=== PATIENT | male | born 1940 | race Caucasian/White ===

== ENCOUNTER 2022-01-10 18:20 | Inpatient (IN) | payer OTHER, SELFPAY ==
[~2022-01-10] VITALS: Ht 182.9 cm; Wt 65.8 kg
[2022-01-10 18:28] VITALS: BP 190/92
[2022-01-10] MEDS ORDERED: NACL 0.9% 1,000 ML IV SCH (18:35)
[2022-01-10] MEDS ORDERED: cefTRIAXone 1,000 MG in DEXT 5% MINI-BAG PLUS 50 ML IV ONE (18:35)
[2022-01-10] MEDS ORDERED: ONDANSETRON 4 MG/2 ML VIAL IVP ONE (18:35)
--- NOTE | 2022-01-10 18:45 | NUR ---
81 Y/O MALE BIBA FROM [facility] C/O N/V/D X1DAY. PER EMT PT BLOOD SUGAR 143. PT HAS A GCS OF 12, NON-VERBAL, LEFT SIDE DEFICITS S/P CVA. DENIES FEVER/CHILLS. DENIES N/V. PMH: DEMENTIA NKA
--- NOTE | 2022-01-10 18:50 | NUR ---
18G IV ESTABLISHED IN L UPPER ARM AND BLOODWORK COLLECTED
--- NOTE | 2022-01-10 18:50 | NUR ---
# 16 FR Urinary catheter inserted utilizing sterile technique. Immediate return of 10 ml YELLOW urine noted. Urine sample collected and sent to lab. Pt tolerated procedure WELL.
--- NOTE | 2022-01-10 18:57 | NUR ---
BLOODWORK, URINE, AND COVID LANG COLLECTED AND WALKED TO LAB
[2022-01-10] MEDS ORDERED: cefTRIAXone 1,000 MG VIAL ONE (18:59)
--- NOTE | 2022-01-10 19:01 | NUR ---
XRAY AT PATIENT BEDSIDE
[2022-01-10] MEDS ORDERED: SENN8.8S21 PO (19:10)
[2022-01-10] MEDS ORDERED: ZINC100T8 PO (19:10)
[2022-01-10] MEDS ORDERED: ACET-8386 PO (19:10)
[2022-01-10] MEDS ORDERED: ELIMC TP (19:10)
[2022-01-10] MEDS ORDERED: [UNRECOGNIZED DRUG - CODE] PO (19:10)
[2022-01-10] MEDS ORDERED: ACET-10509 PO (19:10)
[2022-01-10] MEDS ORDERED: BISA-218 RC (19:10)
[2022-01-10] MEDS ORDERED: MULT-1328 PO (19:10)
[2022-01-10] MEDS ORDERED: ASCO500T95 PO (19:10)
[2022-01-10] MEDS ORDERED: FERR325E14 PO (19:10)
[2022-01-10] MEDS ORDERED: MAGN400S60 PO (19:10)
[2022-01-10] MEDS ORDERED: PANT40EC PO (19:10)
[2022-01-10] MEDS ORDERED: BISA-28 PO (19:10)
[2022-01-10] MEDS ORDERED: MEMA10TA PO (19:10)
[2022-01-10] MEDS ORDERED: DOCU-299 PO (19:10)
--- NOTE | 2022-01-10 19:13 | NUR ---
Pt report given to LU SEWELL. Transfer of care at this time.
[2022-01-10 19:19] LABS: BASOPHILS % (AUTO) 0.3 % (0.0-2.0); EOSINOPHILS # (AUTO) 0.7 K/uL (0-0.4); EOSINOPHILS % (AUTO) 6.4 % (0.0-4.0); HEMATOCRIT 42.1 % (36-52); HEMOGLOBIN 14.2 g/dL (12.0-18.0); LYMPHOCYTES # (AUTO) 0.9 K/uL (2.0-11.5); MEAN CORPUSCULAR HEMOGLOBIN 30 pg (27-31); MEAN CORPUSCULAR HGB CONC 34 g/dL (33-37); MEAN CORPUSCULAR VOLUME 89.4 fL (80-94); MONOCYTES % (AUTO) 0.1 % (1.7-9.3); NEUTROPHILS % (AUTO) 85.2 % (42.2-75.2); PLATELET COUNT (AUTO) 249 K/uL (140-450); RED BLOOD CELL COUNT(AUTO) 4.71 MIL/uL (4.20-6.10); RED CELL DISTRIBUTION WIDTH 14.2 % (11.6-13.7); WHITE BLOOD COUNT (AUTO) 11.7 K/uL (4.8-10.8)
--- NOTE | 2022-01-10 19:34 | NUR ---
Re-position patient, and check patient skin.
[2022-01-10 19:37] LABS: ALBUMIN 2.8 g/dL (3.4-5.0); ANION GAP 16.1 (8-16); ASPARTATE AMINOTRANSFERASE 14 U/L (15-37); CARBON DIOXIDE 25.6 mmol/L (21-32); CHLORIDE 109 mmol/L (98-107); CREATININE 1.1 mg/dL (0.6-1.3); GLUCOSE 117 mg/dL (74-106); POTASSIUM 3.7 mmol/L (3.5-5.1); SODIUM SERUM 147 mmol/L (136-145); TOTAL BILIRUBIN 0.5 mg/dL (0.0-1.0); UREA NITROGEN, BLOOD 20 mg/dL (7-18)
[2022-01-10] MEDS ORDERED: NACL 0.9% 1,000 ML IV ONE (19:45)
[2022-01-10 20:44] LABS: BILIRUBIN,URINE NEGATIVE (NEGATIVE); BLOOD, URINE NEGATIVE (NEGATIVE); LEUKOCYTE ESTERASE ,URINE TRACE (NEGATIVE); NITRITE, URINE NEGATIVE (NEGATIVE); PH,URINE 5.5 (5.0-9.0); UGLUCOSE NEGATIVE (NEGATIVE)
[2022-01-10] MEDS ORDERED: MORPHINE SULFATE 2 MG/ML SYR IVP PRN (20:45)
[2022-01-10] MEDS ORDERED: ONDANSETRON 4 MG/2 ML VIAL IVP PRN (20:45)
[2022-01-10] MEDS ORDERED: HYDROcodone/APAP 5/325 MG 1 TAB TAB PO PRN (20:45)
[2022-01-10 20:48] LABS: APPEARANCE,URINE HAZY (CLEAR); COLOR,URINE AMBER (YELLOW)
[2022-01-10 20:52] LABS: RBC,URINE NONE SEEN /HPF (0-5)
[2022-01-10 20:53] LABS: WBC,URINE 0-5 /HPF (0-5); YEAST,URINE Few /HPF (None Seen)
[2022-01-10] MEDS: NACL 0.9% 1,000 ML IV SCH (21:44)
--- NOTE | 2022-01-10 21:53 | NUR ---
Patient will be admitted to care of Dr. López. Admited to TELE. Will go to room 107A. Belongings list completed. Report to LU Zurita.
[2022-01-10 22:10] VITALS: BP 146/89
--- NOTE | 2022-01-10 22:10 | NUR ---
PT WAS TRANSPORTED VIA GURNEY. PT IS AAOX2 ON RA. CLEAR LUNG SOUNDS. NORMAL HEART BEAT S1, S2 HEARD. SOFT NONTENDER ABDOMEN. SKIN IS WARM AND DRY. LEFT AC 18 RUNNING NS 100. PT WAS EDUCATED POWER BRAKE REBUILDER LIGHT SYSTEM, ROOM ENVIRONMENT, AND STAFF. CALL LIGHT WITHIN REACH. ALL SAFETY MEASURES TAKEN. WILL CONTINUE TO MONITOR THE PT.
[2022-01-11] VITALS: BP 138/82
--- NOTE | 2022-01-11 00:05 | NUR ---
PT IS SLEEPING IN BED COMFORTABLY. PT IS NOT IN ANY DISTRESS. BREATHING RHYTHMIC AND UNLABORED. IVF RUNNING MD ORDER. BED AT THE LOWEST POSITION. WILL CONTINUE TO OBSERVE THE PT.
[2022-01-11 04:00] VITALS: BP 136/85
[2022-01-11] MEDS: NACL 0.9% 1,000 ML IV SCH (06:45)
--- NOTE | 2022-01-11 07:30 | NUR ---
ENDORSED PT TO DAY SHIFT RN FOR CONTINUITY OF CARE. PT IS STABLE.
--- NOTE | 2022-01-11 07:46 | NUR ---
RECEIVED REPORT FROM STACKER DRIVER NURSE. PT STABLE. NO S/S OF DISTRESS. CALL LIGHT IN REACH. ALL SAFETY MEASURES IN PLACE. NEW IV BAG HUNG, MRSA SWAB COMPLETED
[2022-01-11 07:48] LABS: BASOPHILS % (AUTO) 0.5 % (0.0-2.0); EOSINOPHILS # (AUTO) 0.1 K/uL (0-0.4); EOSINOPHILS % (AUTO) 0.8 % (0.0-4.0); HEMOGLOBIN 12.1 g/dL (12.0-18.0); LYMPHOCYTES # (AUTO) 1.5 K/uL (2.0-11.5); LYMPHOCYTES % (AUTO) 19.3 % (20.5-51.1); MEAN CORPUSCULAR HEMOGLOBIN 30 pg (27-31); MEAN CORPUSCULAR HGB CONC 34 g/dL (33-37); MEAN CORPUSCULAR VOLUME 90.4 fL (80-94); MONOCYTES # (AUTO) 0.8 K/uL (0.8-1.0); MONOCYTES % (AUTO) 9.9 % (1.7-9.3); NEUTROPHILS # (AUTO) 5.4 K/uL (1.8-7.7); NEUTROPHILS % (AUTO) 69.5 % (42.2-75.2); PLATELET COUNT (AUTO) 195 K/uL (140-450); RED BLOOD CELL COUNT(AUTO) 3.98 MIL/uL (4.20-6.10); RED CELL DISTRIBUTION WIDTH 14.2 % (11.6-13.7); WHITE BLOOD COUNT (AUTO) 7.8 K/uL (4.8-10.8)
[2022-01-11 08:00] VITALS: BP 144/80
[2022-01-11 08:01] LABS: ANION GAP 10.2 (8-16); CARBON DIOXIDE 27.3 mmol/L (21-32); CHLORIDE 114 mmol/L (98-107); CREATININE 0.9 mg/dL (0.6-1.3); GLUCOSE 87 mg/dL (74-106); POTASSIUM 3.5 mmol/L (3.5-5.1); SODIUM SERUM 148 mmol/L (136-145); UREA NITROGEN, BLOOD 15 mg/dL (7-18)
--- NOTE | 2022-01-11 08:23 | NUR ---
SPOKE TO [facility] CONSERVATOR OFFICE. VIVIANA ALLISON IS PATIENTS DEPUTY CONSERVATOR ON CASE [phone]. WILL FAX CONSENT TO CONSERVATOR OFFICE AT [phone]
[2022-01-11] MEDS ORDERED: DOCUSATE SODIUM 100 MG GELCAP PO PRN (10:35)
[2022-01-11] MEDS ORDERED: HYDROcodone/APAP 5/325 MG 1 TAB TAB PO PRN ×2 (10:35)
[2022-01-11] MEDS ORDERED: MORPHINE SULFATE 2 MG/ML SYR IVP PRN (10:35)
[2022-01-11] MEDS ORDERED: LORazepam 2 MG/ML VIAL IM/IVP PRN (10:35)
[2022-01-11] MEDS ORDERED: MAG SULF 2000 MG/WATER PREMIX 50 ML IV PRN (10:35)
[2022-01-11] MEDS ORDERED: ONDANSETRON 4 MG/2 ML VIAL IM/IVP PRN (10:35)
[2022-01-11] MEDS ORDERED: ACETAMINOPHEN 325 MG TAB PO PRN (10:35)
[2022-01-11] MEDS ORDERED: DOCUSATE 100 MG/10 ML UDC PO PRN (10:40)
--- NOTE | 2022-01-11 10:45 | NUR ---
PATIENT HAS BEEN SCREENED AND CATEGORIZED HIGH NUTRITION RISK. PATIENT WILL BE SEEN WITHIN 1-2 DAYS OF ADMISSION 01/11/22-01/12/[address]
[2022-01-11] MEDS ORDERED: POTASSIUM CHLORIDE 20% 40 MEQ/15 ML UDC PO PRN (10:50)
--- NOTE | 2022-01-11 11:00 | NUR ---
PT CLEANED AND CHANGED. NO S/S OF DISTRESS. CALL LIGHT IN REACH. ALL SAFETY MEASURES IN PLACE
[2022-01-11 11:13] LABS: CHOL/HDL RATIO 3.8 (1-4.5); THYROID STIMULATING HORMONE 1.1 uIU/mL (0.34-3.74)
[2022-01-11 11:18] LABS: PROTHROMBIN TIME 11.6 secs (10.8-13.4)
[2022-01-11] MEDS: DEXT 5% /NACL 0.9% 1,000 ML IV SCH ×2 (11:29→20:35)
[2022-01-11] MEDS ORDERED: SENNA 8.6 MG TAB PO PRN (11:35)
[2022-01-11] MEDS ORDERED: bisacodyL 10 MG SUPP RC PRN ×2 (11:35)
[2022-01-11 12:00] VITALS: BP 164/111
[2022-01-11] MEDS: FLUCONAZOLE 200 MG/NS PREMIX 100 ML IV SCH (12:12)
--- NOTE | 2022-01-11 14:50 | NUR ---
PT RESTING IN BED. NO S/S OF DISTRESS. BREATHING SYMMETRICAL. CALL LIGHT IN REACH. ALL SAFETY MEASURES IN PLACE
--- NOTE | 2022-01-11 15:09 | NUR ---
01/11/2022 RD INITIAL ASSESSMENT COMPLETED. PLEASE REFER TO NUTRITION ASSESSMENT UNDER CARE ACTIVITY FOR ESTIMATED NUTRITIONAL NEEDS. CONTINUE CURRENT DIET TOLERATED. RD MAY CONSIDER NUTRITION SUPPLEMENT IF PO INTAKE IS LOW. RD TO FOLLOW-UP IN 2-3 DAYS, PATIENT IS HIGH RISK. SANDI KERR, RD
[2022-01-11] MEDS ORDERED: LACTULOSE 20 GM/30 ML UDC PO SCH (15:40)
[2022-01-11 16:00] VITALS: BP 142/71
--- NOTE | 2022-01-11 17:34 | NUR ---
PT TRANSPORTED TO RADIOLOGY FOR CT WITH CONTRAST. ALL SAFETY MEASURES IN PLACE
--- NOTE | 2022-01-11 19:20 | NUR ---
RECEIVED BEDSIDE REPORT FROM DAY SHIFT NURSE. PATIENT IS AWAKE AND CONFUSED. RESPIRATION EVEN UNLABORED ON ROOM AIR. SKIN IS WARM AND DRY. IV PATENT AND INTACT. PLAN OF CARE UPDATED. ALL SAFETY MEASURES IN PLACE. BED IS AT LOW POSITION. CALL LIGHT WITHIN REACH. WILL CONTINUE TO MONITOR.
--- NOTE | 2022-01-11 19:30 | NUR ---
ENDORSED PT TO MENTAL HEALTH COORDINATOR NURSE.
[2022-01-11 20:00] VITALS: BP 143/81
[2022-01-11] MEDS: MEMANTINE 10 MG TAB PO SCH (20:45)
--- NOTE | 2022-01-11 20:50 | NUR ---
ALL SCHEDULED MEDS WERE GIVEN PER ORDER. PATIENT PULLED OUT HIS IV, NO ACTIVE BLEEDING NOTED, CANNULA TIP INTACT. PATIENT OF RIGHT NOW REFUSED FOR IV INSERTION WHEN TOUCHED PT BECOME AGITATED AND COMBATIVE. WILL TRY AGAIN LATER
[2022-01-11] MEDS ORDERED: SENNOSIDES PO SCH (21:00)
[2022-01-11] MEDS ORDERED: FERROUS SULFATE 325 MG TABEC PO SCH (21:00)
--- NOTE | 2022-01-11 22:19 | NUR ---
PATIENT IS ANXIOUS AND KEEP GETTING UP. PRN ATIVAN GIVEN PER ORDER. WILL CONTINUE TO MONITOR
--- NOTE | 2022-01-11 23:24 | NUR ---
INSERT NEW IV ON PATIENT LEFT FA 24G. PT TOLERATED IT WELL. WILL CONTINUE TO MONITOR
[2022-01-12] VITALS: BP 127/77
--- NOTE | 2022-01-12 02:00 | NUR ---
MADE ROUNDS PATIENT SLEEPING RESPIRATION EVEN UNLABORED ON ROOM AIR. WILL CONTINUE TO MONITOR.
[2022-01-12 04:00] VITALS: BP 118/69
--- NOTE | 2022-01-12 04:28 | NUR ---
AM CARE PROVIDED
[2022-01-12 06:03] LABS: BASOPHILS % (AUTO) 0.5 % (0.0-2.0); EOSINOPHILS # (AUTO) 0.2 K/uL (0-0.4); EOSINOPHILS % (AUTO) 2.4 % (0.0-4.0); HEMATOCRIT 35.7 % (36-52); HEMOGLOBIN 12.2 g/dL (12.0-18.0); LYMPHOCYTES # (AUTO) 1.6 K/uL (2.0-11.5); LYMPHOCYTES % (AUTO) 20.2 % (20.5-51.1); MEAN CORPUSCULAR HEMOGLOBIN 31 pg (27-31); MEAN CORPUSCULAR HGB CONC 34 g/dL (33-37); MEAN CORPUSCULAR VOLUME 89.8 fL (80-94); MONOCYTES # (AUTO) 0.6 K/uL (0.8-1.0); MONOCYTES % (AUTO) 7.6 % (1.7-9.3); NEUTROPHILS # (AUTO) 5.4 K/uL (1.8-7.7); NEUTROPHILS % (AUTO) 69.3 % (42.2-75.2); PLATELET COUNT (AUTO) 203 K/uL (140-450); RED BLOOD CELL COUNT(AUTO) 3.97 MIL/uL (4.20-6.10); RED CELL DISTRIBUTION WIDTH 13.8 % (11.6-13.7); WHITE BLOOD COUNT (AUTO) 7.8 K/uL (4.8-10.8)
[2022-01-12 06:09] LABS: CARBON DIOXIDE 29.6 mmol/L (21-32); CHLORIDE 109 mmol/L (98-107); CREATININE 0.8 mg/dL (0.6-1.3); GLUCOSE 82 mg/dL (74-106); POTASSIUM 3.6 mmol/L (3.5-5.1); SODIUM SERUM 145 mmol/L (136-145); UREA NITROGEN, BLOOD 11 mg/dL (7-18)
[2022-01-12 06:15] LABS: PHOSPHORUS 3.2 mg/dL (2.5-4.9)
--- NOTE | 2022-01-12 06:23 | NUR ---
PT PULLED HIS IV AGAIN NO ACTIVE BLEEDING NOTED, CANNULA TIP INTACT. INSERTED NEW ONE ON THE LEFT FA 22G.
[2022-01-12] MEDS: DEXT 5% /NACL 0.9% 1,000 ML IV SCH ×2 (06:35→16:57)
--- NOTE | 2022-01-12 07:17 | NUR ---
ENDORSED PATIENT TO DAY SHIFT NURSE FOR CONTINUITY OF CARE
--- NOTE | 2022-01-12 07:18 | NUR ---
RECEIVED REPORT FROM PM NURSE. PATIENT RESTING IN BED, AWAKE, NO SIGNS OF DISTRESS, RESPIRATIONS EVEN & NOLABORED IN ROOM AIR.LEFT FOREARM IV 22G INTACT.
[2022-01-12 08:00] VITALS: BP 151/84
[2022-01-12 08:08] LABS: T4 (THYROXINE) 5.7 ug/dL (4.5-12.0)
[2022-01-12] MEDS ORDERED: bisacodyL 10 MG SUPP RC SCH (09:00)
[2022-01-12] MEDS ORDERED: NON-FORMULARY ITEM (Multivitamin with Minerals (Multivitamins with Minerals) 1 TAB) PO SCH (09:00)
[2022-01-12] MEDS ORDERED: ZINC GLUCONATE 50 MG PO SCH (09:00)
[2022-01-12] MEDS ORDERED: LACTULOSE 20 GM/30 ML UDC PO SCH ×2 (09:00→09:36)
[2022-01-12] MEDS ORDERED: MAGNESIUM HYDROXIDE 2400 MG/30 ML UDC PO SCH (09:36)
[2022-01-12] MEDS ORDERED: MINERAL OIL 135 ML ENEM RC SCH (09:37)
[2022-01-12] MEDS: PANTOPRAZOLE 40 MG TABEC PO SCH (09:39)
[2022-01-12] MEDS: ZINC SULF 220 MG CAP PO SCH (09:39)
[2022-01-12] MEDS: bisacodyL 5 MG TABEC PO SCH (09:39)
[2022-01-12] MEDS: MULTIVITAMIN/MINERALS 1 TAB PO SCH (09:39)
[2022-01-12] MEDS: MEMANTINE 10 MG TAB PO SCH ×2 (09:39→20:43)
[2022-01-12] MEDS: MAGNESIUM HYDROXIDE 2400 MG/30 ML UDC PO SCH (09:39)
[2022-01-12] MEDS: ASCORBIC ACID 500 MG TAB PO SCH (09:40)
--- NOTE | 2022-01-12 10:30 | NUR ---
ENEMA ADMINISTERED AND MANUAL DISIMPACTION PERFORMED. MODERATE SIZED FIRM STOOL REMOVED FROM RECTAL VAULT. DR. SINCLAIR NOTIFIED. Addendum: 01/12/22 at 1844 by Ilene Vazquez RN ADDENDUM: PATIENT TOLERATED PROCEDURE WELL.
[2022-01-12 12:00] VITALS: BP 127/75
[2022-01-12] MEDS: FLUCONAZOLE 200 MG/NS PREMIX 100 ML IV SCH (12:40)
[2022-01-12] MEDS: metroNIDAZOLE 500 MG/NS PREMIX 100 ML IV SCH ×2 (13:17→20:43)
--- NOTE | 2022-01-12 13:30 | NUR ---
NO BM PRESENT. ADMINISTERED BISACODYL SUPPOSITORY.
[2022-01-12 16:00] VITALS: BP 135/92
--- NOTE | 2022-01-12 19:25 | NUR ---
RECEIVED REPORT FROM MORNING NURSE. PATIENT RESTING ON BED. BREATHING EVEN AND UNLABORED. WITH ONGOING IV FLUIDS RUNNING AT DESIRED RATE. WILL CONTINUE TO MONITOR AND ASSESS.
[2022-01-12 20:00] VITALS: BP 123/64
--- NOTE | 2022-01-12 22:30 | NUR ---
PATIENT HAD A LARGE BM, LOOSE AND LARGE. PATIENT CLEANED, BED BAD PROVIDED AND COMPLETE LINEN CHANGE DONE. SAFETY MEASURES PROVIDED.KEPT WARM AND DRY. WILL CONTINUE TO MONITOR AND ASSESS.
[2022-01-13] VITALS: BP 133/66
[2022-01-13] MEDS: DEXT 5% /NACL 0.9% 1,000 ML IV SCH ×3 (02:41→22:41)
[2022-01-13 04:00] VITALS: BP 136/69
[2022-01-13] MEDS: metroNIDAZOLE 500 MG/NS PREMIX 100 ML IV SCH ×2 (05:51→13:29)
--- NOTE | 2022-01-13 06:00 | NUR ---
PATIENT HAD ANOTHER LARGE BM, LOOSE, BROWN. BED BATH, PERICARE AND COMPLETE BED CHANGE DONE. KEPT WARM AND COMFORTABLE. ALL DUE MEDS GIVEN. NO FURTHER COMPLAINTS. WILL CONTINUE TO MONITOR AND ASSESS.
[2022-01-13] MEDS ORDERED: LACT10SO11 PO (06:52)
[2022-01-13] MEDS ORDERED: METR-520 PO (06:52)
--- NOTE | 2022-01-13 07:30 | NUR ---
RECEIVED BEDSIDE REPORT FROM CROWN IRONER NURSE FOR CONTINUITY OF CARE. PATIENT IS AWAKE AND CONFUSED. RESPIRATION EVEN UNLABORED ON ROOM AIR. SKIN IS WARM AND DRY. IV PATENT AND INTACT. PLAN OF CARE UPDATED. ALL SAFETY MEASURES IN PLACE. BED IS AT LOW POSITION. CALL LIGHT WITHIN REACH. WILL CONTINUE TO MONITOR.
[2022-01-13 08:00] VITALS: BP 144/82
[2022-01-13] MEDS: ZINC SULF 220 MG CAP PO SCH (09:53)
[2022-01-13] MEDS: MEMANTINE 10 MG TAB PO SCH ×2 (09:53→20:15)
[2022-01-13] MEDS: bisacodyL 5 MG TABEC PO SCH (09:53)
[2022-01-13] MEDS: PANTOPRAZOLE 40 MG TABEC PO SCH (09:53)
[2022-01-13] MEDS: MULTIVITAMIN/MINERALS 1 TAB PO SCH (09:53)
[2022-01-13] MEDS: MAGNESIUM HYDROXIDE 2400 MG/30 ML UDC PO SCH (09:53)
[2022-01-13] MEDS: LACTULOSE 20 GM/30 ML UDC PO SCH ×2 (09:53→20:14)
[2022-01-13] MEDS: ASCORBIC ACID 500 MG TAB PO SCH (09:53)
--- NOTE | 2022-01-13 10:00 | NUR ---
ALL SCHEDULED MEDS GIVEN. PT IS STABLE. NO DISTRESS NOTED. WILL CONTINUE TO MONITOR.
[2022-01-13 12:00] VITALS: BP 154/88
[2022-01-13] MEDS: FLUCONAZOLE 200 MG/NS PREMIX 100 ML IV SCH (12:19)
--- NOTE | 2022-01-13 13:55 | NUR ---
ALL SCHEDULED MEDS GIVEN. PT IS STABLE. NO DISTRESS NOTED. WILL CONTINUE TO MONITOR.
--- NOTE | 2022-01-13 13:56 | NUR ---
01/13/22 RD FOLLOW UP COMPLETED PLEASE REFER TO NUTRITION PROGRESS NOTE UNDER CARE ACTIVITY FOR ESTIMATED NUTRITION NEEDS. RD RECOMMENDATIONS: 1. CONTINUE PUREE DIET TOLERATED. 2. RD WILL MONITOR PO INTAKE AND CONSIDER NUTRITION SUPPLEMENT IF PO INTAKE IS LOW. 3. RD TO FOLLOW-UP IN 7 DAYS; PATIENT IS LOW RISK. VIRIDIANA ALVES, RD
--- NOTE | 2022-01-13 15:45 | NUR ---
ASSISTED AREA CAPTAIN WITH CHANGING PATIENT. KEPT CLEAN AND DRY.
[2022-01-13 16:00] VITALS: BP 146/83
[2022-01-13] MEDS ORDERED: VANCOMYCIN PER PHARMACY MC PRN (16:15)
--- NOTE | 2022-01-13 16:51 | NUR ---
OBTAINED URINE CULTURE SAMPLE. SENT TO LABS
[2022-01-13] MEDS: VANCOMYCIN 1,000 MG in DEXTROSE 5% 250 ML IV SCH (17:54)
--- NOTE | 2022-01-13 19:05 | NUR ---
ENDORSED TO A AUXILIARY NURSE FOR CONTINUITY OF CARE. PT IS STABLE.
--- NOTE | 2022-01-13 19:20 | NUR ---
RECEIVED REPORT FROM MORNING SHIFT. PATIENT RESTING ON BED, NO UNTOWARD S/SX OBSERVED. BREATHING EVEN AND UNLABORED. ONGOING IV FLUIDS AT DESIRED RATE. WILL CONTINUE TO MONITOR AND ASSESS PATIENT.
[2022-01-13 19:47] LABS: BARBITURATE, URINE NEGATIVE ng/ml (NEG <=200); BENZODIAZEPINE, URINE NEGATIVE ng/mL (NEG <=200); CANNABINOID, URINE NEGATIVE ng/mL (NEG <=50); COCAINE, URINE NEGATIVE ng/mL (NEG <=300); OPIATE, URINE NEGATIVE ng/mL (NEG <=2000); PHENCYCLIDINE SCREEN,URINE NEGATIVE ng/mL (NEG <=25)
[2022-01-13 20:00] VITALS: BP 151/71
--- NOTE | 2022-01-13 22:54 | NUR ---
PATIENT HAD A LARGE BM, CLEANED PATIENT WITH ANOTHER RN. COMPLETE BED CHANGE AND GOWN CHANGE DONE. KEPT WARM AND COMFORTABLE. BED AT LOWEST WITH CALL LIGHT WITHIN REACH. WILL CONTINUE TO MONITOR PATIENT.
[2022-01-14] VITALS: BP 131/77
[2022-01-14] MEDS: ZOLPIDEM 5 MG TAB PO PRN (00:33)
[2022-01-14 04:00] VITALS: BP 160/81
[2022-01-14 07:25] LABS: BASOPHILS % (AUTO) 0.5 % (0.0-2.0); EOSINOPHILS # (AUTO) 0.1 K/uL (0-0.4); EOSINOPHILS % (AUTO) 1.3 % (0.0-4.0); HEMATOCRIT 40.9 % (36-52); HEMOGLOBIN 13.9 g/dL (12.0-18.0); LYMPHOCYTES # (AUTO) 1.3 K/uL (2.0-11.5); LYMPHOCYTES % (AUTO) 15.7 % (20.5-51.1); MEAN CORPUSCULAR HEMOGLOBIN 31 pg (27-31); MEAN CORPUSCULAR HGB CONC 34 g/dL (33-37); MEAN CORPUSCULAR VOLUME 89.9 fL (80-94); MONOCYTES # (AUTO) 0.6 K/uL (0.8-1.0); MONOCYTES % (AUTO) 7.7 % (1.7-9.3); NEUTROPHILS # (AUTO) 6.1 K/uL (1.8-7.7); NEUTROPHILS % (AUTO) 74.8 % (42.2-75.2); PLATELET COUNT (AUTO) 266 K/uL (140-450); RED BLOOD CELL COUNT(AUTO) 4.55 MIL/uL (4.20-6.10); RED CELL DISTRIBUTION WIDTH 13.8 % (11.6-13.7); WHITE BLOOD COUNT (AUTO) 8.1 K/uL (4.8-10.8)
--- NOTE | 2022-01-14 07:32 | NUR ---
RECEIVED BEDSIDE REPORT FROM MACHINE TOOL MECHANIC NURSE FOR CONTINUITY OF CARE. PATIENT IS AWAKE AND CONFUSED. RESPIRATION EVEN UNLABORED ON ROOM AIR. SKIN IS WARM AND DRY. IV PATENT AND INTACT. PLAN OF CARE UPDATED. ALL SAFETY MEASURES IN PLACE. BED IS AT LOW POSITION. CALL LIGHT WITHIN REACH. WILL CONTINUE TO MONITOR.
[2022-01-14 07:58] LABS: ANION GAP 9.8 (8-16); CHLORIDE 109 mmol/L (98-107); CREATININE 0.8 mg/dL (0.6-1.3); GLUCOSE 98 mg/dL (74-106); POTASSIUM 3.8 mmol/L (3.5-5.1); SODIUM SERUM 144 mmol/L (136-145); UREA NITROGEN, BLOOD 8 mg/dL (7-18)
[2022-01-14 08:00] VITALS: BP 161/94
[2022-01-14] MEDS: DEXT 5% /NACL 0.9% 1,000 ML IV SCH ×2 (08:25→17:59)
[2022-01-14] MEDS: PANTOPRAZOLE 40 MG TABEC PO SCH (08:32)
[2022-01-14] MEDS: MAGNESIUM HYDROXIDE 2400 MG/30 ML UDC PO SCH (08:32)
[2022-01-14] MEDS: MEMANTINE 10 MG TAB PO SCH ×2 (08:32→21:16)
[2022-01-14] MEDS: MULTIVITAMIN/MINERALS 1 TAB PO SCH (08:32)
[2022-01-14] MEDS: bisacodyL 5 MG TABEC PO SCH (08:32)
[2022-01-14] MEDS: LACTULOSE 20 GM/30 ML UDC PO SCH ×2 (08:32→21:16)
[2022-01-14] MEDS: ASCORBIC ACID 500 MG TAB PO SCH (08:33)
[2022-01-14] MEDS: ZINC SULF 220 MG CAP PO SCH (08:33)
[2022-01-14 08:35] LABS: MAGNESIUM 2.1 mg/dL (1.8-2.4); PHOSPHORUS 3.3 mg/dL (2.5-4.9)
--- NOTE | 2022-01-14 08:45 | NUR ---
ALL SCHEDULED MEDS GIVEN. PT IS STABLE. NO DISTRESS NOTED. WILL CONTINUE TO MONITOR.
--- NOTE | 2022-01-14 11:21 | NUR ---
CHECKED ON PATIENT. PT IS STABLE. NO DISTRESS NOTED. WILL CONTINUE TO MONITOR.
--- NOTE | 2022-01-14 13:46 | NUR ---
INSERTED NEW 18G IV ON RIGHT UPPER ARM. SALINE FLUSHED. INTACT AND PATENT
[2022-01-14 16:00] VITALS: BP 132/77
[2022-01-14] MEDS: VANCOMYCIN 1,000 MG in DEXTROSE 5% 250 ML IV SCH (16:53)
--- NOTE | 2022-01-14 17:45 | NUR ---
ASSISTED POCKET BUILDER WITH CHANGING PATIENT. KEPT CLEAN AND DRY.
--- NOTE | 2022-01-14 19:42 | NUR ---
ENDORSED TO CERAMIC COATER MACHINE NURSE FOR CONTINUITY OF CARE. PT IS STABLE.
[2022-01-14 20:00] VITALS: BP 155/78
[2022-01-15] VITALS: BP 145/72
[2022-01-15 04:00] VITALS: BP 121/60
[2022-01-15] MEDS: DEXT 5% /NACL 0.9% 1,000 ML IV SCH ×2 (05:00→14:37)
--- NOTE | 2022-01-15 07:30 | NUR ---
REPORT RECEIVED FROM DEVELOPER PROVER UPHOLSTERING - PT AOX0, INCONTINENT, HIGH FALL RISK, VSS, RA, APPEARS ASLEEP, NO ACUTE DISTRESS, WILL CONTINUE POC
[2022-01-15 08:00] VITALS: BP 160/93
[2022-01-15 08:35] LABS: BASOPHILS % (AUTO) 0.5 % (0.0-2.0); EOSINOPHILS # (AUTO) 0.2 K/uL (0-0.4); EOSINOPHILS % (AUTO) 1.9 % (0.0-4.0); HEMATOCRIT 38.1 % (36-52); HEMOGLOBIN 12.9 g/dL (12.0-18.0); LYMPHOCYTES # (AUTO) 1.2 K/uL (2.0-11.5); LYMPHOCYTES % (AUTO) 12.8 % (20.5-51.1); MEAN CORPUSCULAR HEMOGLOBIN 30 pg (27-31); MEAN CORPUSCULAR HGB CONC 34 g/dL (33-37); MEAN CORPUSCULAR VOLUME 88.9 fL (80-94); MONOCYTES # (AUTO) 0.7 K/uL (0.8-1.0); MONOCYTES % (AUTO) 8.1 % (1.7-9.3); NEUTROPHILS % (AUTO) 76.7 % (42.2-75.2); PLATELET COUNT (AUTO) 261 K/uL (140-450); RED BLOOD CELL COUNT(AUTO) 4.28 MIL/uL (4.20-6.10); RED CELL DISTRIBUTION WIDTH 14.1 % (11.6-13.7); WHITE BLOOD COUNT (AUTO) 9.1 K/uL (4.8-10.8)
[2022-01-15 08:52] LABS: MAGNESIUM 2.1 mg/dL (1.8-2.4); PHOSPHORUS 2.6 mg/dL (2.5-4.9)
[2022-01-15] MEDS: MAGNESIUM HYDROXIDE 2400 MG/30 ML UDC PO SCH (08:53)
[2022-01-15] MEDS: MEMANTINE 10 MG TAB PO SCH ×2 (08:54→20:53)
[2022-01-15] MEDS: ZINC SULF 220 MG CAP PO SCH (08:54)
[2022-01-15] MEDS: LACTULOSE 20 GM/30 ML UDC PO SCH ×2 (08:54→20:52)
[2022-01-15] MEDS: ASCORBIC ACID 500 MG TAB PO SCH (08:54)
[2022-01-15] MEDS: bisacodyL 5 MG TABEC PO SCH (08:54)
[2022-01-15] MEDS: MULTIVITAMIN/MINERALS 1 TAB PO SCH (08:55)
[2022-01-15] MEDS: PANTOPRAZOLE 40 MG TABEC PO SCH (08:55)
[2022-01-15 08:59] LABS: ANION GAP 11.9 (8-16); CARBON DIOXIDE 25.6 mmol/L (21-32); CHLORIDE 108 mmol/L (98-107); CREATININE 0.7 mg/dL (0.6-1.3); GLUCOSE 103 mg/dL (74-106); POTASSIUM 3.5 mmol/L (3.5-5.1); SODIUM SERUM 142 mmol/L (136-145); UREA NITROGEN, BLOOD 4 mg/dL (7-18)
--- NOTE | 2022-01-15 09:10 | NUR ---
18FR WOMACK CATHETER INSERTED, PT TOLERATED WELL, NO ACUTE DISTRESS, WILL CONTINUE TO MONITOR
[2022-01-15] MEDS ORDERED: CEPH-588 PO (10:56)
[2022-01-15 12:00] VITALS: BP 142/68
--- NOTE | 2022-01-15 13:47 | NUR ---
DC PLANNING: FAXED THE HOME HEALTH ORDER TO [facility]. CM TO FOLLOW Addendum: 01/16/22 at 1539 by Becca Mercedes RN DC PLANNING: PER LU PAUL HAS NO MORE TRANSPORT FOR TODAY, ARRANGED TRANSPORT WITH [employer] REJECT OPENER TIME WILL BE 6:30PM [facility] ACCEPTED PATIENT FOR [facility] WILL VISIT PATIENT ON 01/17/22 . [facility] [phone]. CM TO FOLLOW
[2022-01-15 16:00] VITALS: BP 130/64
--- NOTE | 2022-01-15 19:20 | NUR ---
RECEIVED REPORT FROM MORNING NURSE. PATIENT RESTING ON BED. IV WAS OUT, RE- INSERTED A NEW ONE ON LEFT UPPER ARM, G 22 , PATIENT TOLERATED WELL. IV FLUIDS RESUMED AT DESIRED RATE. WOMACK CATHETER INTACT AND DRAINING WELL., TERRANCE COLORED. WILL CONTINUE TO MONITOR PATIENT.
[2022-01-15 20:00] VITALS: BP 110/62
[2022-01-15] MEDS: ZOLPIDEM 5 MG TAB PO PRN (20:53)
--- NOTE | 2022-01-16 | NUR ---
PATIENT ASLEEP ON BED. BREATHING EVEN AND UNLABORED. BED LOCKED AT LOWEST WITH CALL LIGHT WITHIN REACH. WILL CONTINUE TO MONITOR PATIENT.
[2022-01-16] MEDS: DEXT 5% /NACL 0.9% 1,000 ML IV SCH ×2 (01:06→10:40)
[2022-01-16 04:00] VITALS: BP 146/96
--- NOTE | 2022-01-16 07:18 | NUR ---
REPORT GIVEN TO MORNING SHIFT RN FOR CONTINUITY OF CARE. PATIENT ASLEEP ON BED WITH NO UNTOWARD S/SX OBSERVED.
--- NOTE | 2022-01-16 07:19 | NUR ---
REPORT RECEIVED FROM PM RN FOR CONTINUITY OF CARE, PT APPEARS ASLEEP, NO ACUTE DISTRESS, VSS, SAFETY MEASURES MAINTAINED, CALL LIGHT WITHIN REACH, WILL CONTINUE TO MONITOR
[2022-01-16 07:44] LABS: BASOPHILS % (AUTO) 0.4 % (0.0-2.0); EOSINOPHILS # (AUTO) 0.2 K/uL (0-0.4); EOSINOPHILS % (AUTO) 1.7 % (0.0-4.0); HEMATOCRIT 37.7 % (36-52); HEMOGLOBIN 12.8 g/dL (12.0-18.0); LYMPHOCYTES # (AUTO) 1.1 K/uL (2.0-11.5); LYMPHOCYTES % (AUTO) 10.7 % (20.5-51.1); MEAN CORPUSCULAR HEMOGLOBIN 30 pg (27-31); MEAN CORPUSCULAR HGB CONC 34 g/dL (33-37); MEAN CORPUSCULAR VOLUME 89.2 fL (80-94); MONOCYTES # (AUTO) 0.6 K/uL (0.8-1.0); MONOCYTES % (AUTO) 5.8 % (1.7-9.3); NEUTROPHILS # (AUTO) 8.7 K/uL (1.8-7.7); NEUTROPHILS % (AUTO) 81.4 % (42.2-75.2); PLATELET COUNT (AUTO) 272 K/uL (140-450); RED BLOOD CELL COUNT(AUTO) 4.22 MIL/uL (4.20-6.10); WHITE BLOOD COUNT (AUTO) 10.7 K/uL (4.8-10.8)
[2022-01-16 07:56] LABS: ANION GAP 10.3 (8-16); CHLORIDE 107 mmol/L (98-107); CREATININE 0.7 mg/dL (0.6-1.3); GLUCOSE 98 mg/dL (74-106); POTASSIUM 3.3 mmol/L (3.5-5.1); SODIUM SERUM 142 mmol/L (136-145); UREA NITROGEN, BLOOD 7 mg/dL (7-18)
[2022-01-16 08:00] VITALS: BP 124/72
[2022-01-16 08:04] LABS: MAGNESIUM 2.2 mg/dL (1.8-2.4); PHOSPHORUS 2.8 mg/dL (2.5-4.9)
[2022-01-16] MEDS: ASCORBIC ACID 500 MG TAB PO SCH (08:45)
[2022-01-16] MEDS: PANTOPRAZOLE 40 MG TABEC PO SCH (08:45)
[2022-01-16] MEDS: LACTULOSE 20 GM/30 ML UDC PO SCH (08:45)
[2022-01-16] MEDS: MAGNESIUM HYDROXIDE 2400 MG/30 ML UDC PO SCH (08:45)
[2022-01-16] MEDS: MEMANTINE 10 MG TAB PO SCH (08:46)
[2022-01-16] MEDS: ZINC SULF 220 MG CAP PO SCH (08:46)
[2022-01-16] MEDS: MULTIVITAMIN/MINERALS 1 TAB PO SCH (08:46)
[2022-01-16] MEDS: bisacodyL 5 MG TABEC PO SCH (08:46)
--- NOTE | 2022-01-16 14:02 | NUR ---
PT GIVEN BED BATH, REPOSITIONED, NO ACUTE DISTRESS, SAFETY MEASURES MAINTAINED, WILL CONTINUE TO MONITOR
--- NOTE | 2022-01-16 15:30 | NUR ---
CALLED KAILA JUAREZ TO GIVE REPORT, SPOKE TO LU SERRANO. VSS, NO ACUTE DISTRESS, WILL CONTINUE TO MONITOR. SCHEDULED CUSTOMER SUPPORT ASSOCIATE FOR [id number]
[2022-01-16 17:42] VITALS: BP 126/68
--- NOTE | 2022-01-16 18:48 | NUR ---
PT CLEANED, IV REMOVED, VSS, NO ACUTE DISTRESS, STABLE FOR TRANSFER TO [facility].
--- NOTE | 2022-01-17 07:34 | NUR ---
PHYSICAL THERAPY CO-SIGN The Physical Therapy Progress Notes documented by Imaging System Administrator have been reviewed. Reviewed/Co-Signed by: Eufemia Barnes Documentation Done by: CORBIN FERNANDES PTA Addendum: 01/17/22 at 0734 by Eufemia Barnes PT Amended: Links added.
[2022-01-17] MEDS ORDERED: CHOLECALCIFEROL 50000 UNIT PO SCH (09:00)
[2022-01-17] MEDS ORDERED: ERGOCALCIFEROL 50,000 IU SGL PO SCH (09:00)
== END 2022-01-16 18:55 | DRG 690 ==
LOC: MED 18:20 → MTU 20:49
DX: N39.0 Urinary tract infection, site not specified (principal); E87.0 Hyperosmolality and hypernatremia; E44.0 Moderate protein-calorie malnutrition; E87.2 Acidosis; M84.452A Pathological fracture, left femur, initial encounter for fracture; Z68.1 Body mass index [BMI] 19.9 or less, adult; K56.41 Fecal impaction; F02.80 Dementia in other diseases classified elsewhere, unspecified severity, without behavioral disturbance, psychotic disturbance, mood disturbance, and anxiety; I10 Essential (primary) hypertension; K21.9 Gastro-esophageal reflux disease without esophagitis; G30.9 Alzheimer's disease, unspecified; D50.9 Iron deficiency anemia, unspecified; B37.9 Candidiasis, unspecified; K72.90 Hepatic failure, unspecified without coma; K52.89 Other specified noninfective gastroenteritis and colitis; Z20.822 Contact with and (suspected) exposure to COVID-19; I72.8 Aneurysm of other specified arteries; B96.89 Other specified bacterial agents as the cause of diseases classified elsewhere; D18.09 Hemangioma of other sites; N20.0 Calculus of kidney; N21.0 Calculus in bladder; Z86.73 Personal history of transient ischemic attack (TIA), and cerebral infarction without residual deficits; Z79.899 Other long term (current) drug therapy
CPT/HCPCS: 36415; 71045; 74018; 80048; 80053; 80305; 81001; 82140; 82150; 83036; 83605; 83690; 83735; 83880; 84100; 84134; 84436; 84443; 84484; 85025; 85610; 85730; 87040; 87081; 87086; 93005; 96365; 96375; 97110; 97163-GP; 97530; 99285; J0696; J1450; J1644; J2060; J2405; J3370; J3490; J7060; Q0092; Q9967

== ENCOUNTER 2022-02-13 12:38 | Emergency (ER) | payer OTHER ==
[~2022-02-13] VITALS: Ht 182.9 cm; Wt 68.0 kg
[~2022-02-13 12:38] MED LIST: ACET-10509 PO; ACET-8386 PO; ASCO500T95 PO; BISA-218 RC; BISA-28 PO; CEPH-588 PO; DOCU-299 PO; FERR325E14 PO; LACT10SO11 PO; MAGN400S60 PO; MEMA10TA PO; MULT-1328 PO; PANT40EC PO; SENN8.8S21 PO; ZINC100T8 PO; [UNRECOGNIZED DRUG - CODE] PO
--- NOTE | 2022-02-13 12:38 | NUR ---
Patient BIBA to bed 11 at this time.
[2022-02-13 12:43] VITALS: BP 109/80
--- NOTE | 2022-02-13 13:02 | NUR ---
81 Y/O MALE BIBA FROM [facility] C/O ALOC XYESTERDAY. PER FACILITY. PATIENT'S BASELINE IS RESPONSIVE TO VERBAL STIMULI BUT IS NON-VERBAL. PER STAFF, PT IS NOW ONLY RESPONSIVE TO PAINFUL STIMULI/UNRESPONSIVE. UPON ASSESSMENT PT IS AWAKE AND INTERACTIVE, NON-VERBAL WITH INCOMPREHENSIBLE SPEECH, UNABLE TO FOLLOW SIMPLE DIRECTIONS. SKIN IS WARM AND DRY, WITH SCRATCHES NOTED ON THE ABDOMEN. NON-BLANCHABLE REDNESS ON THE SACROCCOCCYX. WOMACK IN PLACE INSERTED LAST WEEK BY FACILITY PER FACILITY NURSE, DRAINING CLOUDY DARK URINE. GCS 10. PUPILS ARE EQUAL AND REACTIVE TO LIGHT. RESPIRATIONS EVEN AND UNLABORED, PATIENT IN GOWN ON MAINTENANCE SUPERVISOR MECHANICAL. NO S/S OF DISTRESS NOTED AT THIS TIME MEDHX: DEMENTIA, TIA, CVA WITH DYSPHAGIA, COPD, CHRONIC UTI'S, GERD, PARKINSON'S DISEASE ALLERGIES: NKA
--- NOTE | 2022-02-13 13:21 | NUR ---
PT TAKEN TO CT VIA JIM
--- NOTE | 2022-02-13 13:30 | NUR ---
SPOKE WITH NURSE AT [facility]. NURSE REPORTED THAT THE WOMACK WAS INSERTED X1 WEEK AGO. DR GUILLAUME MADE AWARE AND RECEIVED VERBAL ORDER TO KEEP WOMACK IN, NO NEED TO EXCHANGE.
[2022-02-13] MEDS: NACL 0.9% 1,000 ML IV SCH ×2 (13:40→13:50)
--- NOTE | 2022-02-13 13:50 | NUR ---
COVID LANG AND INFLUENZA SAMPLES COLLECTED.BLOOD DRAWN BY IV. ALL SAMPLES COLLECTED AND HANDED TO [facility] TECH
[2022-02-13 14:08] LABS: BASOPHILS # (AUTO) 0.1 K/uL (0.00-0.22); BASOPHILS % (AUTO) 0.4 % (0.0-2.0); EOSINOPHILS # (AUTO) 0.3 K/uL (0-0.4); EOSINOPHILS % (AUTO) 1.6 % (0.0-4.0); HEMATOCRIT 40.1 % (36-52); HEMOGLOBIN 12.9 g/dL (12.0-18.0); LYMPHOCYTES # (AUTO) 1.8 K/uL (2.0-11.5); LYMPHOCYTES % (AUTO) 9.1 % (20.5-51.1); MEAN CORPUSCULAR HEMOGLOBIN 29 pg (27-31); MEAN CORPUSCULAR HGB CONC 32 g/dL (33-37); MEAN CORPUSCULAR VOLUME 90.7 fL (80-94); MONOCYTES # (AUTO) 0.9 K/uL (0.8-1.0); MONOCYTES % (AUTO) 4.4 % (1.7-9.3); NEUTROPHILS # (AUTO) 16.4 K/uL (1.8-7.7); NEUTROPHILS % (AUTO) 84.5 % (42.2-75.2); PLATELET COUNT (AUTO) 381 K/uL (140-450); RED BLOOD CELL COUNT(AUTO) 4.42 MIL/uL (4.20-6.10); RED CELL DISTRIBUTION WIDTH 14.5 % (11.6-13.7); WHITE BLOOD COUNT (AUTO) 19.4 K/uL (4.8-10.8)
[2022-02-13 14:25] VITALS: BP 112/73
[2022-02-13 14:39] LABS: ALBUMIN 2.2 g/dL (3.4-5.0); ANION GAP 12.8 (8-16); ASPARTATE AMINOTRANSFERASE 61 U/L (15-37); CARBON DIOXIDE 25.6 mmol/L (21-32); CHLORIDE 124 mmol/L (98-107); CREATININE 1.3 mg/dL (0.6-1.3); GLUCOSE 124 mg/dL (74-106); POTASSIUM 3.4 mmol/L (3.5-5.1); TOTAL BILIRUBIN 1.1 mg/dL (0.0-1.0); UREA NITROGEN, BLOOD 27 mg/dL (7-18)
[2022-02-13 14:40] LABS: SODIUM SERUM 159 mmol/L (136-145)
--- NOTE | 2022-02-13 15:03 | NUR ---
REPORT CALLED TO ANTHONY LEIGH AT [facility]
--- NOTE | 2022-02-13 15:04 | NUR ---
Patient to be transferred to [facility]. Is being transferred due to HIGHER LEVEL OF CARE. Receiving facility has accepting physician and available space. ER physician has signed transfer form. Patient or responsible constitution party has agreed to transfer and signed form. Patient belongings inventoried and will be sent with patient. Copy of nursing notes, lab reports, EKG, Physicians Orders and X-rays to be sent with patient. Report called to ANTHONY at receiving facility. [facility] ambulance service has been called for transfer. ETA is 15.
[2022-02-13 16:06] LABS: APPEARANCE,URINE CLOUDY (CLEAR); BLOOD, URINE 3+ (NEGATIVE); COLOR,URINE YELLOW (YELLOW); PH,URINE 6.5 (5.0-9.0); UGLUCOSE NEGATIVE (NEGATIVE)
[2022-02-13 16:08] LABS: BILIRUBIN,URINE 1+ (NEGATIVE)
[2022-02-13 16:09] LABS: LEUKOCYTE ESTERASE ,URINE 3+ (NEGATIVE); NITRITE, URINE POSITIVE (NEGATIVE)
[2022-02-13 16:29] LABS: CALCIUM OXALATE CRYSTALS,UR None Seen /HPF (None Seen); COARSE GRANULAR CASTS,URINE None Seen /LPF (None Seen); FINE GRANULAR CASTS,URINE None Seen /LPF (None Seen); HYALINE CASTS, URINE None Seen /LPF (None Seen); OTHER CASTS, URINE None Seen /LPF (None Seen); OTHER CRYSTALS,URINE None Seen /HPF (None Seen); RED BLOOD CELL CASTS,URINE None Seen /LPF (None Seen); TRICHOMONAS,URINE None Seen /HPF (None Seen); TRIPLE PHOSPHATE CRYSTAL,UR None Seen /HPF (None Seen); URIC ACID CRYSTALS,URINE None Seen /HPF (None Seen); URINE AMORPHOUS URATE None Seen /HPF (None Seen); WAXY CASTS,URINE None Seen /LPF (None Seen); WBC,URINE 80-100 /HPF (0-5); YEAST,URINE None Seen /HPF (None Seen)
--- NOTE | 2022-02-16 17:53 | NUR ---
LATE ENTRY. POSITIVE URINE CULTURE OF PSEUDOMONAS AERUGINOSA. DR POST WILL SEND OVER RX OF ANTIBIOTICS. SPOKE WITH LUCY, NURSE TAKING CARE OF PT AT [facility]. INFORMED HIM OF RESULTS AND THAT ABX WILL BE SENT OVER TO PTS [facility].
[2022-02-16] MEDS ORDERED: LEVO750T51 PO (18:03)
== END 2022-02-13 15:04 | disposition short-term general hospital (02) ==
LOC: MED 12:38
DX: S06.5X0A Traumatic subdural hemorrhage without loss of consciousness, initial encounter (principal); E11.9 Type 2 diabetes mellitus without complications; I10 Essential (primary) hypertension; Z86.73 Personal history of transient ischemic attack (TIA), and cerebral infarction without residual deficits; Z79.899 Other long term (current) drug therapy; Z20.822 Contact with and (suspected) exposure to COVID-19; X58.XXXA Exposure to other specified factors, initial encounter; Y93.89 Activity, other specified; Y92.89 Other specified places as the place of occurrence of the external cause; Y99.8 Other external cause status
CPT/HCPCS: 36415; 70450; 71045; 80053; 81001; 83605; 83880; 84484; 85025; 85610; 85730; 87040; 87086; 87426; 87804; 93005; 96360; 99291; J7030